=== PATIENT | male | born 1995 | race Caucasian/White ===

== ENCOUNTER 2017-12-12 10:14 | Emergency (ER) | payer OTHER, SELFPAY ==
--- NOTE | 2017-12-12 11:07 | XR_ITS ---
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 The configuration of the distal phalanx is similar to previous study.. Soft tissue injury disruption suggested radiographically Incidental note is made of a 6 mm radiopaque metallic needle fragment appearing structure, projected over the distal aspect of the long finger/third finger.... Only the frontal view of the entire hand include this area.-This feature was not seen on 2016 exam. Clinical correlation required. IMPRESSION: No fracture nor dislocation with attention to the fifth finger Incidental 6 mm needle fragment projected over the distal third finger. Clinical correlation required
[2017-12-12 11:10] VITALS: BP 117/72; PULSE 86; RESP 20; TEMP 36.6; O2SAT 99; BMI 22.3
--- NOTE | 2017-12-12 11:57 | HMH.EDUTC ---
[facility] [place] Disposition Clinical Impression: Injury of finger of right hand Qualifiers: Encounter type: initial encounter Qualified Code(s): S69.91XA - Unspecified injury of right wrist, hand and finger(s), initial encounter Disposition: Home, Self-Care Condition on Discharge: Good Instructions: Contusion, DI for Contusion Additional Instructions: Tylenol or ibuprofen as needed for pain Keep area clean and dry Follow-up with Dr. Chow this week If symptoms worsen or do not improve return or be seen in the ER Ice 20 minutes then removed may repeat for comfort Referrals: Kenneth Chow MD [Staff Physician] - Time of Disposition: 12:04 Medical Decision Making Vital Signs: 12/12/17 11:10 Temperature 98 F Temperature Source Temporal Artery Scan Pulse Rate [Brachial] 86 Respiratory Rate 20 Blood Pressure [Right Arm] 117/72 Blood Pressure Mean [Right Arm] 87 Blood Pressure Source [Right Arm] Automatic Cuff Blood Pressure Position [Right Arm] Sitting 02 Sat by Pulse Oximetry 99 Oxygen Delivery Method Room Air Orders (Tests/Meds): ORDERS Category Date Time Status Finger XR right minimum 2 views [XR finger RT min 2V] Exams 12/12/17 11:07 Taken Stat - Ilna Inquiry Pt receiving controlled substance: No [facility] [place] HPI - General Chief complaint: Urgent Treatment Center Stated complaint: lac right pinky finger Time Seen by Provider: 12/12/17 11:57 Mode of Arrival: Ambulatory Source of Information: Patient Limitations: No Limitations Description of Symptoms (Recalled from Triage Doc. by RN): PT STATES HE SMASHED HIS RT PINKY FINGER IN THE BAY DOOR AT WORK. HEENT Symptoms (Recalled from RN notes): No Resp Symptoms (Recalled from RN notes): No Skin Symptoms (Recalled from RN notes): Yes MS Symptoms (Recalled from RN notes): No Functional Status (Recalled from RN notes): NA - History of Present Illness Provider Complaint: 22-year-old male presents for injury to the right pinky finger. 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 - Related Data Home Medications Medication Instructions Recorded Confirmed No Known Home Medications [No 12/12/17 12/12/17 Known Home Medications] Allergies Allergy/AdvReac Type Severity Reaction Status Date / Time No Known Allergies Allergy Unverified 12/19/17 15:16 - Worker's Comp Is this a Worker's Comp case?: Yes Is this an H Worker's Comp?: No Is this a [place] Worker's Comp?: No [facility] History I have reviewed the patient's past medical history: Yes - *Social History Smoking Status: Current every day smoker Tobacco Type: cigarettes Alcohol Intake: never - Psychiatric History Expresses thoughts of harming self/others: None Suicide Plan Description: No Plan ROS Obtained: Yes All systems reviewed & no additional complaints - Constitutional Constitutional: Reports system reviewed and no additional complaints, except as docu - Eyes Eyes: Reports system reviewed and no additional complaints, except as docu - ENT Ears, Nose, Mouth, and Throat: Reports system reviewed and no additional complaints, except as docu - Cardiovascular Cardiovascular: Reports system reviewed and no additional complaints, except as docu - Respiratory Respiratory: Yes system reviewed and no additional complaints, except as docu - Gastrointestinal Gastrointestingal: Reports: system reviewed and no additional complaints, except as docu - Musculoskeletal Musculoskeletal: Reports system reviewed and no additional complaints, except as docu - Integumentary/Breasts Skin/Breast: Reports system reviewed and no additional complaints, except as docu, Reports as per HPI Comments: Small laceration beside the thumbnail on the right pinky. - Neurologic Neurologic: Reports system reviewed and no additional complaints, except as docu, Denies tingling - Endocrine Endocrine: Reports system reviewed and no additiona
--- NOTE | 2017-12-12 12:00 | ED_ITS ---
[facility] [place] Impression: Injury of finger of right hand Qualifiers: Encounter type: initial encounter Qualified Code(s): S69.91XA - Unspecified injury of right wrist, hand and finger(s), initial encounter Disposition: Home, Self-Care Condition on Discharge: Good Instructions: Contusion, DI for Contusion Additional Instructions: Tylenol or ibuprofen as needed for pain Keep area clean and dry Follow-up with Dr. Chow this week If symptoms worsen or do not improve return or be seen in the ER Ice 20 minutes then removed may repeat for comfort Referrals: Kenneth Chow MD [Staff Physician] - Time of Disposition: 12:04 Medical Decision Making Vital Signs: 12/12/17 11:10 Temperature 98 F Temperature Source Temporal Artery Scan Pulse Rate [Brachial] 86 Respiratory Rate 20 Blood Pressure [Right Arm] 117/72 Blood Pressure Mean [Right Arm] 87 Blood Pressure Source [Right Arm] Automatic Cuff Blood Pressure Position [Right Arm] Sitting 02 Sat by Pulse Oximetry 99 Oxygen Delivery Method Room Air Orders (Tests/Meds): ORDERS Category Date Time Status Finger XR right minimum 2 views [XR finger RT min 2V] Exams 12/12/17 11:07 Taken Stat - Ilan Inquiry Pt receiving controlled substance: No [facility] [place] - General Chief complaint: Urgent Treatment Center Stated complaint: lac right pinky finger Time Seen by Provider: 12/12/17 11:57 Mode of Arrival: Ambulatory Source of Information: Patient Limitations: No Limitations Description of Symptoms (Recalled from Triage Doc. by RN): PT STATES HE SMASHED HIS RT PINKY FINGER IN THE BAY DOOR AT WORK. HEENT Symptoms (Recalled from RN notes): No Resp Symptoms (Recalled from RN notes): No Skin Symptoms (Recalled from RN notes): Yes MS Symptoms (Recalled from RN notes): No Functional Status (Recalled from RN notes): NA - History of Present Illness Provider Complaint: 22-year-old male presents for injury to the right pinky finger. 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 - Related Data Home Medications Medication Instructions Recorded Confirmed No Known Home Medications [No 12/12/17 12/12/17 Known Home Medications] Allergies Allergy/AdvReac Type Severity Reaction Status Date / Time No Known Allergies Allergy Unverified 12/19/17 15:16 - Worker's Comp Is this a Worker's Comp case?: Yes Is this an H Worker's Comp?: No Is this a [place] Worker's Comp?: No [facility] History I have reviewed the patient's past medical history: Yes - *Social History Smoking Status: Current every day smoker Tobacco Type: cigarettes Alcohol Intake: never - Psychiatric History Expresses thoughts of harming self/others: None Suicide Plan Description: No Plan ROS Obtained: Yes All systems reviewed & no additional complaints - Constitutional Constitutional: Reports system reviewed and no additional complaints, except as docu - Eyes Eyes: Reports system reviewed and no additional complaints, except as docu - ENT Ears, Nose, Mouth, and Throat: Reports system reviewed and no additional complaints, except as docu - Cardiovascular Cardiovascular: Reports system reviewed and no additional complaints, except as docu - Respiratory
== END 2017-12-12 12:16 | disposition home or self-care (01) ==
PROVIDERS: Emergency Provider Nurse Practitioner Family; Family Provider Pediatrics
DX: S67.196D Crushing injury of right little finger, subsequent encounter (principal); W23.0XXD Caught, crushed, jammed, or pinched between moving objects, subsequent encounter; F17.210 Nicotine dependence, cigarettes, uncomplicated
CPT/HCPCS: 73140; 99202

== ENCOUNTER → 2018-12-06 16:04 | Outpatient (CLI) | payer OTHER, SELFPAY ==
--- NOTE | 2018-12-06 16:14 | CT_ITS ---
CT abdomen pelvis wo con CLINICAL INDICATION: Lower abdominal pain with hematuria ITS.REASON: STONE STUDY ORDERING PHYSICIAN: Sarai Valerio PATIENT AGE: 23 years COMPARISON: None TECHNIQUE: Axial images obtained with sagittal and coronal reformats. All CT scans at the facility use one or more dose reduction, viz: automated exposure control, ma/kV adjustment per patient size (including targeted exams where dose is matched to indication, i.e. head), or iterative reconstruction technique. PROCEDURE: Oral Contrast: None IV Contrast: None . FINDINGS: Lung bases are clear. The liver, gallbladder, spleen, adrenal glands, pancreas, and kidneys have an unremarkable unenhanced CT appearance. No renal or ureteral calculi. No hydronephrosis. There is mild thickening of the urinary bladder with minimal stranding of the fat anterior to the urinary bladder. This may be related to cystitis. The appendix is not clearly delineated. No evidence of appendicitis. No intestinal obstruction or free air. Scattered small lymph nodes are present within the mesentery is nonspecific. There are multiple unopacified bowel loops present within the abdomen/pelvis which could obscure or mimic pathology. If symptoms persists, consider repeating exam with IV and oral contrast administration. IMPRESSION: 1. No renal or ureteral calculi. 2. Possible cystitis. 3. There are multiple unopacified bowel loops present within the abdomen/pelvis which could obscure or mimic pathology. If symptoms persists, consider repeating exam with IV and oral contrast administration
== END ==
PROVIDERS: PCP Internal Medicine Adolescent Medicine; Visit Provider Nurse Practitioner Family
DX: R31.9 Hematuria, unspecified (principal)
CPT/HCPCS: 74176

== ENCOUNTER 2021-06-26 12:10 | Emergency (ER) | payer OTHER, SELFPAY ==
[2021-06-26 13:15] VITALS: BP 121/76; PULSE 89; RESP 16; TEMP 36.8; O2SAT 100; BMI 22.9
--- NOTE | 2021-06-26 13:39 | HMH.EDUTC ---
[facility] [place] Clinical Impression: Exposure to COVID-19 virus Disposition: Home, Self-Care Condition on Discharge: Good Instructions: DI for COVID-19 (Suspected or Confirmed ), Coronavirus Disease 2019, Preventing the Spread of Coronavirus Discharge Instructions Additional Instructions: *Monitor Temp, Over the counter Motrin or Tylenol as directed/as needed Tylenol every 4 hours and Motrin every 6 hours (as long as your family doctor has told you that you can take it) for fever or pain. and straight to ER if unable to lower temp less than 101.0 after medication given *Warm salt water gargles may help to soothe the throat *Throat Lozenges *Warm fluids like tea with honey may help to soothe the throat *Sleep elevated *Humidifier/Vaporizer Follow up IMMEDIATELY for new or worsening symptoms or no Noticeable improvement over the next 48-72 hours. 911 for difficulty breathing or swallowing You were tested for today for COVID19 your test result should be back in the next 24-48 hours, you may call to the [facility] to see if your test results are back in the next 48 hours [phone] [facility] hours are 9am-9pm You was given a handout with instructions for Self Quarantine and Self isolation for while you wait on test results and what to do if they are positive If you are positive the Health Dept will be contacting you also Make sure to take your Vitamins Vit. C Vit D and Zinc if you can take them Referrals: Provider,Referral, [Primary Care Provider] - As needed Forms: Work/School Release Time of Disposition: 13:44 Medical Decision Making - Ilan Inquiry Pt receiving controlled substance: No Ilan was queried for this patient: No Vital Signs: 06/26/21 13:15 Temperature 98.3 F Temperature Source Oral Pulse Rate [Right Brachial] 89 Respiratory Rate 16 Blood Pressure [Right Arm] 121/76 Blood Pressure Mean [Right Arm] 91 Blood Pressure Source [Right Arm] Automatic Cuff Blood Pressure Position [Right Arm] Sitting 02 Sat by Pulse Oximetry 100 Oxygen Delivery Method Room Air Orders (Tests/Meds): ORDERS Category Date Time Status Covid-19 Nasal PCR ([facility]) Routine Lab 06/26/21 13:34 Ordered [facility] [place] HPI - General Stated complaint: covid exposure, symptoms Time Seen by Provider: 06/26/21 13:39 Mode of Arrival: Ambulatory Source of Information: Patient Limitations: No Limitations Description of Symptoms (Recalled from Triage Doc. by RN): COVID TEST D/T EXPOSURE, DENIES SYMPTOMS HEENT Symptoms (Recalled from RN notes): No Resp Symptoms (Recalled from RN notes): No Skin Symptoms (Recalled from RN notes): No MS Symptoms (Recalled from RN notes): No Functional Status (Recalled from RN notes): WNL - History of Present Illness Provider Complaint: Patient states that he has been around that tested positive COVID State that he had body aches, chills, low grade and cough a few days ago but not now State that after finding out she is positive he is worried he may have it now too - Related Data Previous Rx's Medication Instructions Recorded ondansetron HCl 4 mg tablet 4 mg PO TID PRN #10 tab 10/13/19 Allergies Allergy/AdvReac Type Severity Reaction Status Date / Time No Known Allergies Allergy Verified 10/13/19 15:34 - Worker's Comp Is this a Worker's Comp case?: No [facility] History - Hepatitis A Screen Drug use history?: No High risk sexual behaviors?: No History of sexually transmitted infection?: No Currently employed?: No Childcare worker?: No Do you have indoor plumbing?: Yes Do you have electricity?: Yes Attestation statement:: This patient has been screened for Hepatitis A risk factors. I have reviewed the patient's past medical history: Yes Other Surgeries: Yes: No Previous Surgery - Social History Smoking Status: Current every day smoker Tobacco Type: cigarettes Alcohol Intake: current Alcohol Intake Frequency:: a few times a month Occupational Status: employed Family Hx:: Clive
[2021-06-26 13:47] VITALS: BP 121/76; PULSE 89; RESP 16; TEMP 36.8; O2SAT 100
== END 2021-06-26 13:59 | disposition home or self-care (01) ==
PROVIDERS: Emergency Provider Nurse Practitioner
DX: Z20.822 Contact with and (suspected) exposure to COVID-19 (principal); F17.210 Nicotine dependence, cigarettes, uncomplicated
CPT/HCPCS: 99202; G0463; U0003

== ENCOUNTER 2021-07-02 14:52 | Emergency (ER) | payer OTHER, SELFPAY ==
[2021-07-02 14:52] VITALS: BP 131/79; PULSE 79; RESP 18; TEMP 36.6; O2SAT 999; BMI 22.9
--- NOTE | 2021-07-02 15:47 | HMH.EDUTC ---
[facility] [place] Dis[place] Clinical Impression: Exposure to COVID-19 virus Disposition: Home, Self-Care Condition on Discharge: Good Instructions: DI for COVID-19 (Suspected or Confirmed ), Preventing the Spread of Coronavirus Discharge Instructions Additional Instructions: *Monitor Temp, Over the counter Motrin or Tylenol as directed/as needed Tylenol every 4 hours and Motrin every 6 hours (as long as your family doctor has told you that you can take it) for fever or pain. and straight to ER if unable to lower temp less than 101.0 after medication given *Warm salt water gargles may help to soothe the throat *Throat Lozenges *Warm fluids like tea with honey may help to soothe the throat *Sleep elevated *Humidifier/Vaporizer Follow up IMMEDIATELY for new or worsening symptoms or no Noticeable improvement over the next 48-72 hours. 911 for difficulty breathing or swallowing You were tested for today for COVID19 your test result should be back in the next 24-48 hours, you may call to the [facility] to see if your test results are back in the next 48 hours [phone] [facility] hours are 9am-9pm You was given a handout with instructions for Self Quarantine and Self isolation for while you wait on test results and what to do if they are positive If you are positive the Health Dept will be contacting you also Make sure to take your Vitamins Vit. C Vit D and Zinc if you can take them Referrals: Provider,Referral, [Primary Care Provider] - Time of Disposition: 15:51 Medical Decision Making - Medical Records Medical records reviewed: No: I reviewed the patient's medical records. - Ilan Inquiry Pt receiving controlled substance: No Vital Signs: 07/02/21 14:52 07/02/21 16:03 Temperature 97.9 F 97.9 F Temperature Source Oral Pulse Rate 79 Pulse Rate [Right] 79 Respiratory Rate 18 18 Blood Pressure 131/79 Blood Pressure [Right Arm] 131/79 Blood Pressure Mean [Right Arm] 96 02 Sat by Pulse Oximetry 999 H [facility] [place] HPI - General Stated complaint: covid test Time Seen by Provider: 07/02/21 15:47 Description of Symptoms (Recalled from Triage Doc. by RN): pt request covid test pt has no symptoms HEENT Symptoms (Recalled from RN notes): No Resp Symptoms (Recalled from RN notes): No Skin Symptoms (Recalled from RN notes): No MS Symptoms (Recalled from RN notes): No Functional Status (Recalled from RN notes): na - History of Present Illness Provider Complaint: He needs a covid test because he was exposed to covid at his job. He denies any symptoms. - Related Data Previous Rx's Medication Instructions Recorded ondansetron HCl 4 mg tablet 4 mg PO TID PRN #10 tab 10/13/19 Allergies Allergy/AdvReac Type Severity Reaction Status Date / Time No Known Allergies Allergy Verified 10/13/19 15:34 - Worker's Comp Is this a Worker's Comp case?: No [facility] History - Hepatitis A Screen Drug use history?: No High risk sexual behaviors?: No History of sexually transmitted infection?: No Currently employed?: No Childcare worker?: No Do you have indoor plumbing?: Yes Do you have electricity?: Yes Attestation statement:: This patient has been screened for Hepatitis A risk factors. I have reviewed the patient's past medical history: Yes Other Surgeries: Yes: No Previous Surgery - Social History Smoking Status: Current every day smoker Tobacco Type: cigarettes Alcohol Intake: current Alcohol Intake Frequency:: a few times a month Occupational Status: employed Family Hx:: Hypertension ROS Obtained: Yes All systems reviewed & no additional complaints - Constitutional Constitutional: Reports system reviewed and no additional complaints, except as docu - Eyes Eyes: Reports system reviewed and no additional complaints, except as docu - ENT Ears, Nose, Mouth, and Throat: Reports system reviewed and no additional complaints, except as docu - Cardiovascular Cardiovascular: Reports system reviewed and no additional com
[2021-07-02 16:03] VITALS: BP 131/79; PULSE 79; RESP 18; TEMP 36.6; O2SAT 99
== END 2021-07-02 16:04 | disposition home or self-care (01) ==
PROVIDERS: Emergency Provider Nurse Practitioner Family
DX: Z20.822 Contact with and (suspected) exposure to COVID-19 (principal); F17.210 Nicotine dependence, cigarettes, uncomplicated
CPT/HCPCS: 99202; G0463; U0003

== ENCOUNTER 2022-04-10 18:42 | Emergency (ER) | payer OTHER, SELFPAY ==
[2022-04-10 19:00] VITALS: BP 142/84; PULSE 104; RESP 18; TEMP 36.7; O2SAT 99; BMI 21.8
--- NOTE | 2022-04-10 19:06 | XR_ITS ---
PROCEDURE INFORMATION: Exam: XR Left Knee Exam date and time: 04/10/2022 7:03 PM Age: 26 years old Clinical indication: Pain; Knee; Left TECHNIQUE: Imaging protocol: XR Left knee. Views: 3 views. COMPARISON: No relevant prior studies available. FINDINGS: Bones/joints: No acute fracture or dislocation. Soft tissues: A large suprapatellar joint effusion. IMPRESSION: Large suprapatellar joint effusion but no underlying acute fracture or dislocation.
--- NOTE | 2022-04-10 19:28 | HMH.EDUTC ---
[facility] [place] Clinical Impression: Left knee injury, Suprapatellar effusion of knee Disposition: Home, Self-Care Condition on Discharge: Good Instructions: DI for Knee Effusion Additional Instructions: Follow up with ortho for an MRI of the left knee Referrals: Toni Silver JR, MD [Physician] - Time of Disposition: 19:51 Medical Decision Making - Ilan Inquiry Pt receiving controlled substance: No Vital Signs: 04/10/22 19:00 Temperature 98.1 F Temperature Source Oral Pulse Rate [Right Brachial] 104 H Respiratory Rate 18 Blood Pressure [Right Arm] 142/84 H Blood Pressure Mean [Right Arm] 103 Blood Pressure Source [Right Arm] Automatic Cuff Blood Pressure Position [Right Arm] Sitting 02 Sat by Pulse Oximetry 99 Oxygen Delivery Method Room Air - Radiology Data #1 Image(s): Knee Image Reviewed: Yes I have reviewed radiologist's interpretation Preliminary Findings: Abnormal, No Fracture Seen PROCEDURE INFORMATION: Exam: XR Left Knee Exam date and time: 04/10/2022 7:03 PM Age: 26 years old Clinical indication: Pain; Knee; Left TECHNIQUE: Imaging protocol: XR Left knee. Views: 3 views. COMPARISON: No relevant prior studies available. FINDINGS: Bones/joints: No acute fracture or dislocation. Soft tissues: A large suprapatellar joint effusion. IMPRESSION: Large suprapatellar joint effusion but no underlying acute fracture or dislocation. [facility] [place] HPI - General Stated complaint: left knee pain Time Seen by Provider: 04/10/22 19:44 Mode of Arrival: Ambulatory Source of Information: Patient Limitations: No Limitations Description of Symptoms (Recalled from Triage Doc. by RN): PATIENT C/O PAIN AND SWELLING TO LEFT KNEE. 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 Started after wrestling with a friend who did a leg toss. He landed directly on his left knee and folded in on himself. When he went to stand, he felt a pop and his leg gave out on him. He states he limped for a few days, wore a knee brace, and it seemed to get better. Than about a week ago he was walking, his knee gave out again, he felt and heard a tearing sensation and knee has been extremely painful, swollen and difficult to walk on. Onset (ago): week(s) (3) Location: left, lower extremity Relieving factors: immobilization Exacerbating factors: other (weight bearing) Treatments prior to arrival: NSAID - Related Data Home Medications Medication Instructions Recorded Confirmed No Known Home Medications 10/26/21 10/26/21 Allergies Allergy/AdvReac Type Severity Reaction Status Date / Time No Known Allergies Allergy Verified 10/26/21 17:21 - Worker's Comp Is this a Worker's Comp case?: No [facility] History - Hepatitis A Screen Attestation statement:: This patient has been screened for Hepatitis A risk factors. I have reviewed the patient's past medical history: Yes Other Surgeries: Yes: No Previous Surgery - Social History Smoking Status: Former smoker Tobacco Type: cigarettes Alcohol Intake: current Alcohol Intake Frequency:: a few times a month Occupational Status: employed Family Hx:: Hypertension ROS Obtained: Yes All systems reviewed & no additional complaints - Musculoskeletal Musculoskeletal: Reports joint pain, Reports joint swelling, Reports limited range of motion Physical Exam - General General appearance: alert, in no apparent distress - Head Head exam: normocephalic - Chest Chest inspection: Present: normal inspection, symmetric chest wall rise - Respiratory Respiratory exam: Present: normal lung sounds bila
[2022-04-10 19:49] VITALS: BP 142/84; PULSE 104; RESP 18; TEMP 36.7; O2SAT 99
== END 2022-04-10 20:43 | disposition home or self-care (01) ==
PROVIDERS: Emergency Provider Physician Assistant
DX: M25.462 Effusion, left knee (principal); X50.0XXA Overexertion from strenuous movement or load, initial encounter
CPT/HCPCS: 73562; 99212; G0463

== ENCOUNTER 2023-08-03 18:39 | Emergency (ER) | payer OTHER, SELFPAY ==
[2023-08-03 19:10] VITALS: BP 127/74; PULSE 110; RESP 18; TEMP 37.8; O2SAT 99; BMI 24.5
--- NOTE | 2023-08-03 19:39 | EXP.UTC ---
Discharge Plan Disposition Patient Disposition: Home, Self-Care Condition: Good Prescriptions Prescriptions: No Action No Known Home Medications Referrals Follow up/Referrals: Provider,Referral, MD [Primary Care Provider] - See instructions Activity Restrictions/Add. Instructions Additional Instructions/Restrictions: *Monitor Temp, Over the counter Motrin or Tylenol as directed/as needed Tylenol every 4 hours and Motrin every 6 hours (as long as your family doctor has told you that you can take it) for fever or pain. and straight to ER if unable to lower temp less than 101.0 after medication given *Warm salt water gargles may help to soothe the throat *Throat Lozenges? *Warm fluids like tea with honey may help to soothe the throat? *Sleep elevated *Humidifier/Vaporizer *Flonase 2 sprays in each nostril daily but be aware that it may take 2-3 days before you notice improvement *Bromfed may cause drowsiness. Know how it effects you (your child) before driving, caring for small child, or sending your child to school. Not other antihistamines/allergy medications while taking bromfed Your throat swab was sent for culture. Those results are typically sent to your primary care. Be sure to follow up in 2-3 days with your family doctor/primary care physician if no improvement so they can review those result and treat if necessary. If you don?t have a primary care doctor, I recommend you get one but in the mean time, you will have to return to a walk in clinic Follow up IMMEDIATELY for new or worsening symptoms or no Noticeable improvement over the next 48-72 hours. 911 for difficulty breathing or swallowing You were tested for today for COVID19 your test result should be back in the next 24 you may check your results on the [facility] My Health Portal if COVID positive you must then Quarantine at home for 5 days before returning to work or school Clinical Impressions Clinical Impression: Viral syndrome Stand Alone Forms Stand Alone Forms: Work/School Release Instructions Patient Instructions: DI for Fever (Symptom) -- Adult Discharge ED Provider: Yumiko Jaramillo [facility] HPI General Stated complaint: fever, SOA, chills/body aches Mode of Arrival: Ambulatory Source of Information: Patient Limitations: No Limitations Time Seen by Provider: 08/03/23 19:39 Description of Symptoms (Recalled from Triage Doc. by RN): fever, chills, body aches, SOB HEENT Symptoms (Recalled from RN notes): Yes Resp Symptoms (Recalled from RN notes): No Skin Symptoms (Recalled from RN notes): No MS Symptoms (Recalled from RN notes): No Functional Status (Recalled from RN notes): n/a History of Present Illness Provider Complaint: Patient states that he has been having fever, chills, body aches, cough stuffy nose and cough States that he felt a little hard to breath earlier but he was not able to breath out of his nose so not sure if that is what was making him feel that way Related Data Home Medications Medication Instructions Recorded Confirmed No Known Home Medications 10/26/21 04/23/22 Allergies Allergy/AdvReac Type Severity Reaction Status Date / Time No Known Allergies Allergy Verified 08/03/23 19:35 Worker's Comp Is this a Worker's Comp case?: No [facility] Disclaimer: The information contained in this section may have been updated after the patient was seen, as this information can be updated by other users. Social History Smoking Status: Former smoker alcohol intake: current current occupational status: employed Travel in the last 8 weeks: None ROS Obtained: Yes All systems reviewed & no additional complaints except as documented and Yes Systems reviewed as appropriate & no additional complaints except as documented Constitutional Constitutional: Reports system reviewed and no additional complaints, except as d
[2023-08-03 19:44] LABS: UTC Influenza A Antigen Negative (Negative)
[2023-08-03 19:47] LABS: UTC Influenza B Antigen Negative (Negative)
[2023-08-03 20:32] VITALS: BP 127/74; PULSE 110; RESP 18; TEMP 37.4; O2SAT 99
== END 2023-08-03 20:31 | disposition home or self-care (01) ==
PROVIDERS: Emergency Provider Nurse Practitioner
DX: R50.9 Fever, unspecified (principal); R09.81 Nasal congestion; B34.9 Viral infection, unspecified; Z87.891 Personal history of nicotine dependence
CPT/HCPCS: 87635; 87804; 99212; 99214; G0463

== ENCOUNTER 2024-06-12 20:51 | Emergency (ER) | payer OTHER, SELFPAY ==
[2024-06-12 20:52] VITALS: BP 121/82; PULSE 103; RESP 15; TEMP 37.1; O2SAT 97; BMI 23.0
--- NOTE | 2024-06-12 20:56 | ECG_ITS ---
APPROVED REPORT Exam: Resting ECG HR:91 bpm ECG Measurements Heart Rate 91 AXES NC 191 P 61 QRSd 90 QRS 93 QT 348 T 42 QTc 397 Conclusion SINUS RHYTHM WITH SINUS ARRHYTHMIA BORDERLINE RIGHT AXIS DEVIATION [QRS AXIS > 90] BORDERLINE ECG Electronically signed by : CHER SCHAEFER, 06/12/2024 21:54:20
--- NOTE | 2024-06-12 21:18 | ED_ITS ---
Discharge Plan Disposition Patient Disposition: Home, Self-Care Condition: Good Prescriptions Prescriptions: No Action No Known Home Medications Referrals Follow up/Referrals: Provider,Referral, [Primary Care Provider] - See instructions Activity Restrictions/Add. Instructions Additional Instructions/Restrictions: Your workup today is reassuring. Please follow-up with your primary care provider. Return to the emergency department for new or worsening symptoms. Clinical Impressions Clinical Impression: Electrocution Stand Alone Forms Stand Alone Forms: Work/School Release Instructions Patient Instructions: Electrical [employer] and Injuries Print Language Print Language: Bulgarian Discharge ED Provider: Nithya Patel General Adult HPI General Chief complaint: PAIN Stated complaint: shocked by relay box Time Seen by Provider: 06/12/24 20:53 Mode of Arrival: Wheelchair Source of Information: Patient and Significant Other Limitations: No Limitations Description of Symptoms (Recalled from ER Triage Doc. by RN): Pt to ED via wheelchair. Pts S/O states he was working on the stove and grabbed a fuse box which electrocuted his right hand, shot a pain through his right arm, into his chest. S/O states outlet was 220 volts. Pt states he lost feeling in his right arm, which is better now. States his right arm and chest are now sore. History of Present Illness HPI narrative: This patient is a 28-year-old male without significant past medical history presenting to the emergency department for evaluation with concern for electrocution. Patient was working on a stove relay box when he got shocked. He felt the shock in his right arm. Outlet is 220 V. He states he feels shaky but otherwise fine right now. Related Data Home Medications ?Medication ?Instructions ?Recorded ?Confirmed No Known Home Medications 10/26/21 04/23/22 Allergies Allergy/AdvReac Type Severity Reaction Status Date / Time No Known Allergies Allergy Verified 08/03/23 19:35 [facility] Disclaimer: The information contained in this section may have been updated after the patient was seen, as this information can be updated by other users. Social History Smoking Status: Current every day smoker tobacco type: cigarettes alcohol intake: current alcohol intake frequency: a few times a month current occupational status: employed Travel in the last 8 weeks: None ROS Obtained: Yes All systems reviewed & no additional complaints except as documented Physical Exam General General appearance: alert and in no apparent distress Head Head exam: atraumatic and normocephalic Eye Eye exam: Present normal appearance, PERRL and EOMI ENT ENT exam: Present normal exam, normal oropharynx, mucous membranes moist and normal external ear exam Neck Neck exam: Present normal inspection, full ROM and trachea midline; Absent tenderness Chest Chest inspection: Present normal inspection and symmetric chest wall rise; Absent tenderness Respiratory Respiratory exam: Present normal lung sounds bilaterally; Absent respiratory distress, wheezes, stridor or accessory muscle use Cardiovascular Cardiovascular exam: Present regular rate and normal rhythm Abdominal Exam Abdominal exam: Present soft; Absent distention, tenderness or guarding Extremities Exam Extremities exam: Present normal inspection, full ROM and normal capillary refill; Absent tenderness or edema Back Exam Back exam: Present normal inspection and full ROM; Absent tenderness Neurological Exam Neurological exam: Present alert, oriented X3, CN II-XII intact and normal gait; Absent motor sensory deficit Psychiatric Psychiatric exam: Present normal affect and normal mood Skin Skin exam: Present warm and dry Medical Decision Making Medical Records Medical records reviewed: Yes I reviewed the patient's medical records. Ilan Inquiry Pt receiving controlled substance: No Vital Signs: 06/12/24 20:52 06/12/24 21:30 06/12/24 21:47 Temperature 98.8 F 98.8 F Temperature Source Oral Oral Pulse Rate 102 H 88 Pulse Rate [Right Radial] 103 H Respiratory Rate 15 22 20 Blood Pressure 129/83 129/84 Blood Pressure [Left Arm] 121/82 Blood Pressure Mean [Left Arm] 95 Blood Pressure Source Automatic Cuff Blood Pressure Source [Left Arm] Automatic Cuff Blood Pressure Position Sitting Blood Pressure Position [Left Arm] Sitting 02 Sat by Pulse Oximetry 97 98 Oxygen Delivery Method Room Air Room Air Lab Data Lab results reviewed: Yes I reviewed the patient's lab results. ECG Data Tracing #1: I reviewed this ECG and interpreted as documented below: Normal sinus rhythm with a ventricular rate of 91 bpm. Sinus rhythm noted. No acute ST changes concerning for ischemia. Normal axis and intervals. ECG initial impression date: 06/12/24 ECG initial impression time: 20:57 Medical Decision Narrative: In summary, this patient is a 28-year-old male presenting to the Emergency Department for evaluation of electrocution injury. Differential diagnoses considered include but are not limited to minor electrocution injury, dysrhythmia, compartment syndrome. Ruling out the most morbid conditions drove assessment. Overall, the patient's potential electrocution is low voltage a CT current, which is low risk for significant injury. EKG obtained is reassuring. Vitals are normal on cardiac telemetry and exam is reassuring with no skin color changes or other issues. Patient is asymptomatic at this time. Given this, I feel that he likely has low risk electrical injury and does not need further workup or observation. I feel he is unlikely to have any sort of issue as a result of this. On reassessment again, the patient continues to be asymptomatic with reassuring vital signs on cardiac telemetry. I still feel he is appropriate for discharge home with low risk electrical injury. I gave him strict return precautions and instructions for close outpatient follow-up. He was discharged after all questions were answered. Critical Care Critical Care Time Critical Care Time: No
[2024-06-12 21:30] VITALS: BP 129/83; PULSE 102; RESP 22; O2SAT 98
--- NOTE | 2024-06-12 21:45 | PC.NURSE ---
pt ambulated to the restroom. pt done well. pt is now back in his room hooked back up to the vital machine at this time.
[2024-06-12 21:47] VITALS: BP 129/84; PULSE 88; RESP 20; TEMP 37.1; O2SAT 98
== END 2024-06-12 21:51 | disposition home or self-care (01) ==
PROVIDERS: Emergency Provider Emergency Medicine
DX: T75.4XXA Electrocution, initial encounter (principal); W86.8XXA Exposure to other electric current, initial encounter
CPT/HCPCS: 93005; 99283